=== PATIENT | male | born 1940 | race Caucasian/White ===

== ENCOUNTER → 2017-04-18 | Outpatient (CLI) | payer MEDICARE, OTHER ==
[~2017-04-18] MED LIST: ASPIRIN PO; CENTRUM SILVER PO; DICLOFENAC PO; DITROPAN5 MG PO; FERRO-TIME325 MG PO; FISH OIL 1,0001 CAP PO; FLAGYL PO; FLAXSEED OIL1000 M1 PO; IMODIUM2 MG PO; LIPITOR40 MG PO; LOPRESSOR PO; MELOXICAM15 MG PO; OSTEO BI-FLEX PO; PRILOSEC PO; QUESTRAN PACK4 G/PKT PO; UROCIT K PO; VITAMIN D32000 UNIT PO; VITEYES PO; VOLTAREN75 MG PO; ZOCOR PO
--- NOTE | ~2017-04-18 | EKG ---
PATIENT: ADRIANE KRISHNA UNIT #: [id number] Ventricular Rate: 59 BPM Atrial Rate: 59 BPM P-R Interval: 200 ms QRS Duration: 98 ms Q-T Interval: 420 ms QTC Calculation(Bezet): 415 ms P [place]: 44 degrees Calculated R [place]: -21 degrees Calculated T [place]: 46 degrees Diagnosis Line: Sinus bradycardia Diagnosis Line: Otherwise normal ECG Diagnosis Line: When compared with ECG of 04-JAN-2011 20:47, Diagnosis Line: Vent. rate has decreased BY 64 BPM Diagnosis Line: Confirmed by PRESTON GOYAL MD ([id number]) on Diagnosis Line: 04/18/2017 10:42:22 PM INTERPRETING MD: DAISY
== END | disposition home or self-care (01) ==
LOC: CAMB 08:00
DX: Z01.810 Encounter for preprocedural cardiovascular examination (principal); K43.9 Ventral hernia without obstruction or gangrene
CPT/HCPCS: 93005

== ENCOUNTER → 2017-04-24 | Day surgery (SDC) | payer MEDICARE, OTHER ==
--- NOTE | ~2017-04-24 | OR ---
Unit #: [id number] #: [id number] Patient: ADRIANE KRISHNA [id number] [address] [address] [id number] MR#: [id number] NAME: ADRIANE KRISHNA ROOM: Date of Procedure: 04/24/2017 Admission Date: 04/24/2017 Surgeon: Layton Anne M.D. : 1940 Attending Physician: Layton Anne M.D. Primary Care Physician: Earnest Borden M.D. OPERATIVE REPORT PREOPERATIVE DIAGNOSIS Incarcerated ventral hernia. POSTOPERATIVE DIAGNOSIS 2 cm incarcerated ventral hernia. PROCEDURE PERFORMED Laparoscopic ventral hernia repair of incarcerated ventral hernia with 6-inch circular Ventralight mesh. HULL INSPECTOR Ji Saavedra M.D. ANESTHESIA General endotracheal anesthesia. ESTIMATED BLOOD LOSS Minimal. IV FLUIDS 800 crystalloid. COMPLICATIONS None. INDICATIONS FOR PROCEDURE The patient is a gentleman, who presents with an incarcerated hernia. DESCRIPTION OF PROCEDURE The patient was taken to the operating theater and placed in supine position. General anesthesia was induced. The abdomen was prepped and draped. A 5-mm Optiview trocar was placed in the left upper quadrant without difficulty. The abdomen was insufflated to 15 mmHg with CO2. Under direct vision, I placed left lower quadrant 10 mm. General inspection of the abdomen revealed an incarcerated hernia. This was reduced. I then placed a 6-inch Ventralight mesh. This was held in place with single-stranded Vicryl sutures and delivered transcutaneous. I then secured with a SorbaFix Tacker with each tack being 1.5 cm from previous tack. This covered the defect by at least 5 cm in all circumference. Hemostasis was adequate. I removed the ports under direct vision with no evidence of abdominal hemorrhage. The wounds were closed with 4-0 Vicryl. The sutures were cut at skin level. The patient tolerated the procedure Unit #: [id number] #: [id number] Patient: ADRIANE KRISHNA well and sent to the recovery room in good condition. Dictated by... Joselin Wood/arielle TD: 04/26/2017 17:23 JOB #: [id number] OPERATIVE REPORT Page 1 of 1 X Layton Anne MD PROCEDURE OPERATIVE NOTE
== END | disposition home or self-care (01) ==
LOC: CSUR 05:37
DX: K43.6 Other and unspecified ventral hernia with obstruction, without gangrene (principal); Z86.73 Personal history of transient ischemic attack (TIA), and cerebral infarction without residual deficits; I10 Essential (primary) hypertension; K21.9 Gastro-esophageal reflux disease without esophagitis; E78.5 Hyperlipidemia, unspecified; E87.6 Hypokalemia; I25.10 Atherosclerotic heart disease of native coronary artery without angina pectoris; Z95.5 Presence of coronary angioplasty implant and graft; G47.30 Sleep apnea, unspecified; M19.90 Unspecified osteoarthritis, unspecified site
CPT/HCPCS: C1781; J0330; J0690; J1100; J1170; J1644; J2405; J2710; J3010